=== PATIENT | male | born 1980 | race Caucasian/White ===

== ENCOUNTER 2021-12-25 11:07 | Emergency (ER) | payer OTHER, SELFPAY ==
[2021-12-25 11:15] VITALS: BP 126/79; PULSE 92; RESP 16; TEMP 36.2; O2SAT 100
[2021-12-25 11:25] VITALS: BP 126/79; PULSE 92; RESP 16; TEMP 36.2; O2SAT 100
--- NOTE | 2021-12-25 11:29 | ED.URI ---
HPI - URI/Sore Throat General Chief Complaint: Upper Respiratory Infection Stated Complaint: Sore Throat,Congestion,Headache,Body Aches Time Seen by Provider: 12/25/21 11:29 Source: patient Mode of arrival: ambulatory Limitations: no limitations History of Present Illness HPI Narrative: 41 yo M presents with c/o fever/chills, bodyaches, headache, fatigue and sore throat for 3 days. Reports that his son had strep last week. Denies N/V/D. No CP or SOB. All systems reviewed and negative except as noted above. Related Data Home Medications Medication Instructions Recorded Confirmed esomeprazole magnesium 20 mg 20 mg PO DAILY 12/25/21 12/25/21 tablet,delayed release Allergies Allergy/AdvReac Type Severity Reaction Status Date / Time No Known Allergies Allergy Verified 12/25/21 11:24 Review of Systems Review of Systems: CONSTITUTIONAL: Reports fever, chills, or sweats. Reports fatigue. EYES: Denies visual changes, redness, or discharge. ENT: Denies rhinorrhea, congestion. Reports sore throat. Denies otalgia. CARDIOVASCULAR: Denies chest pain, palpitations, or edema. RESPIRATORY: Denies cough or dyspnea. GASTROINTESTINAL: Denies abdominal pain, nausea, vomiting, or diarrhea. GENITOURINARY: Denies dysuria or hematuria. SKIN: Denies rash or itching. MUSCULOSKELETAL: Denies back pain, joint pain, or myalgia. NEUROLOGIC: Denies headache, numbness, or weakness. PSYCHIATRIC: Denies anxiety or depression. All other systems reviewed are negative, except as documented in HPI. PMFSH Comments At time of signature, agree with nursing past medical, surgical, social and family history. There is no relevant family history pertinent to the presenting complaint. Exam Narrative: GENERAL: This is a well-nourished, well-developed patient, in no apparent distress. HEAD: normocephalic, atraumatic. EYES: PERRL. Sclera clear/white. Vision is grossly intact. EARS: External ears normal, auditory canals clear and without drainage, TMs normal without perforation. Hearing grossly intact. NOSE: External nose normal with no obvious nasal discharge, nares without redness, no rhinorrhea. THROAT: Mucous membranes moist, mild erythema to posterior pharynx with mild swelling No exudates. No tonsillar swelling. NECK: Neck supple, non-tender without lymphadenopathy, masses or thyromegaly. CARDIOVASCULAR: Regular rate and rhythm without murmurs, gallops, or rubs. RESPIRATORY: Clear to auscultation. Breath sounds equal bilaterally. No wheezes, rales, or rhonchi. SKIN: warm, Dry, intact with no suspicious lesions or rash, good texture and turgor. NEURO: awake, alert, and oriented to person, place and time. There were no obvious focal neurologic abnormalities. EXTREMITIES: No joint tenderness, effusion, or edema noted. Course Course Level of Care: Express Care Visit Vital Signs Vital signs: Vital Signs Temperature 36.2 C L 12/25/21 11:15 Pulse Rate 92 12/25/21 11:15 Respiratory Rate 16 12/25/21 11:15 Blood Pressure 126/79 12/25/21 11:15 Pulse Oximetry 100 12/25/21 11:15 Oxygen Delivery Room Air 12/25/21 11:15 Temperature 36.2 C L 12/25/21 11:25 Pulse Rate 92 12/25/21 11:25 Respiratory Rate 16 12/25/21 11:25 Blood Pressure 126/79 12/25/21 11:25 Pulse Oximetry 100 12/25/21 11:25 Oxygen Delivery Room Air 12/25/21 11:25 Reviewed MDM - URI/Sore Throat MDM Narrative Medical decision making narrative: Patient is aware of diagnosis, understands and agrees to treatment plan. Anticipatory guidance given. Patient agrees to follow-up as directed and is aware of reasons to seek care at the emergency department. Portions of this record may have been created with voice recognition software Positive rapid strep. We will treat patient with amoxicillin. Differential Diagnosis Differential diagnosis: Likely upper respiratory infection, sinusitis, viral infection, influenza and pharyngitis Lab Data Labs: Lab
== END 2021-12-25 11:37 | disposition home or self-care (01) ==
PROVIDERS: Emergency Provider Nurse Practitioner Family
DX: J02.0 Streptococcal pharyngitis (principal); Z20.822 Contact with and (suspected) exposure to COVID-19; Z86.16 Personal history of COVID-19
CPT/HCPCS: 87426; 87804; 87880; 99203; C9803; G0463

== ENCOUNTER 2025-04-17 10:24 | Emergency (ER) | payer OTHER, SELFPAY ==
--- OUTSIDE RECORDS SUMMARY | 2025-04-17 10:26 | XMS_ITS | Clinical Summary ---
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 Gender Identity Not on file Sexual Orientation Not on file Plan of Treatment Health Maintenance Due Date Last Done Comments Hepatitis C Virus (HCV) Screening 1981 TdaP Immunization 1981 Hepatitis B Immunization (1 of 3 - 19+ 3-dose series) 01/02/2000 Human Papillomavirus (HPV) Immunization (1 - 3-dose SCDM series) 01/02/2008 Influenza Immunization (#1) 2025 SARS-COV-2 Immunization ( season) 2025 Respiratory Syncytial Virus (RSV) Immunization (Adult) (1 - 1-dose 75+ series) 01/02/2056 Meningococcal Immunization (ACWY) Aged Out No longer eligible based on patient's age to complete this topic Pneumococcal Immunization Combined Aged Out No longer eligible based on patient's age to complete this topic Rotavirus Immunization Aged Out No lo nger eligible based on patient's age to complete this topic Insurance [employer] on file
--- OUTSIDE RECORDS SUMMARY | 2025-04-17 10:26 | XMS_ITS | Data Portability ---
Author Organization [place] [facility], Main Office Address [address] [place] [address] Assessment Encounter Date Assessment Date Assessment LastModified by Organization Details LastModified Time 03/26/2024 03/26/2024 This note is dictated and transcribed by [employer]. [employer] Operator variances may occur. Despite proofreading, typographical errors may occur. Occasional wrong-word or 'nhaxu-r-sxzw' substitutions may have occurred due to the inherent limitations of voice recording. Read the chart carefully and recognize, using context, where substitutions have occurred. Not available 03/26/2024 15:55:15 04/20/2024 04/20/2024 This note is dictated and transcribed by [employer]. [employer] Operator variances may occur. Despite proofreading, typographical errors may occur. Occasional wrong-word or 'wtyoo-u-jrrx' substitutions may have occurred due to the inherent limitations of voice recording. Read the chart carefully and recognize, using context, where substitutions have occurred. Not available 04/30/2024 10:41:56 06/25/2024 06/25/2024 This note is dictated and transcribed by [employer]. [employer] Operator variances may occur. Despite proofreading, typographical errors may occur. Occasional wrong-word or 'qfphq-w-yxft' substitutions may have occurred due to the inherent limitations of voice recording. Read the chart carefully and recognize, using context, where substitutions have occurred. Not available 06/25/2024 14:29:53 Plan of Treatment Reminders Order Date Submit Date Provider Last Modified By Organization Details Last Modified Time Details Appointments None recorded. Lab None recorded. Referral None recorded. Procedures None recorded. Surgeries None recorded. Imaging None recorded. Medication Orders ketoconazol e 2 % topical cream 2023 024 [id number] [address], [place], [id number], 15:58:19 Patient TargetsNo targets recorded. Patient InstructionsNo instructions recorded. Reason for Referral None Reported. Problems Name Problem SNOMED Code Status Onset Date Resolution Date Notes Provider Name and Address Organization Details Recorded Time Tinea pedis 5987999 Active 2023 Percy Yarbrough DPM [address], [place], [address], [employer] 15:55:04 Acquired pes planus of left foot 2964935549394 08 Active 2023 Percy Yarbrough DPM [address], [address], [place], [address], [employer] 4 15:55:13 Metatarsalg ia 97928047 Active 2023 Percy Yarbrough DPM [address], [place], [address], [employer] 4 15:55:34 Bunion 865698845 Active 2023 Percy Yarbrough DPM [address], [place], [address], [employer] 4 15:55:39 Problem Notes None recorded. Procedures Surgical History Date Name Laterality Status Provider Name and Address Organization Details Recorded Time reconstruction of anterior cruciate ligament of knee joint completed [facility] 03/26/2024 16:06:25 repair of meniscus completed [facility] [facility] 03/26/2024 16:06:36 Imaging Results None recorded. Procedure Notes None recorded. Medical Equipment None Reported. Medications Name Sig Start Date Stop Date Status Note LastModified by Organization Details LastModified Time pantoprazole 20 mg tablet,delayed release active Not Available Not Available Not Available ketoconazole 2 % topical cream APPLY TO THE AFFECTED AREA OF BOTH FEET DAILY FOR 2 WEEKS active Not Available Not Available No t Available Advil active Not Available Not Availa ble Not Available esomeprazole magnesium active Not Available Not Available No t Available Vitals Date Recorded Body height Provider Name an d Address Organization Details Last Updated DateTime 06/25/2024 175.26 cm Lexy Mcpherson [employer] 06/25/2024 14:09:29 Date Recorded Heart rate Respiratory rate Oxygen saturation Oxygen saturation in Arterial blood by Pulse oximetry Body height Body mass index (BMI) Body weight Systolic And Diastolic Provider Name and Address Organization Details Last Updated DateTime 4 74 /min 14 /min 99 % 99 % 175.26 cm 31.7 kg/m2 07579.3 6 g 154/101 mm[Hg] Lexy Mcpherson [facility] 4 15:07:04 Date Recorded Body height Heart rate Respiratory rate Oxygen saturation Oxygen saturation in Arterial blood by Pulse oximetry Systolic And Diastolic Provider Name and Address Organization Details Last Updated DateTime 175.26 cm 77 /min 14 /min 99 % 99 % 148/101 mm[Hg] Lexy Wright [place] [employer] [facility] 4 15:44:39 Social History Question Answer Notes LastModified by [employer] Details LastModified Time Tobacco Smoking Status Never Smoker [facility]y [employer] [facility] 03/26/2024 16:06:58 What Is Your Level Of Caffeine Consumption? Moderate Information not available 03/26/2024 What Was The Date Of Your Most Recent Tobacco Screening? 03/26/2024 Information not available 03/26/2024 Have You Ever Been Counseled For Unhealthy Alcohol Use? No Information not available 03/26/2024 Has Tobacco Cessation Counseling Been Provided? No Information not available 03/26/2024 Sex: Unknown Functional Status Question Answer Note LastModified by Organizat ion Details LastModified Time Do you use any illicit or recreational drugs? No Information not available 03/26/2024 Do you or have you ever used any other forms of tobacco or nicotine? No Information not available 03/26/2024 What is your level of alcohol consumption? Occasional Information not available 03/26/2024 Mental Status None recorded. Family History Relationship Description Onset Age of this Age Resolved Age Notes LastModified by Organization Details LastModified Time Paternal Grandfather Diabetes mellitus Not available 2023 16:05:17 Paternal Grandfather Heart disease Not available 2023 16:06:06 Maternal Grandmother Arthritis [email or web address] Not available 14:07:45 Father Hypertensive disorder Not available 2023 16:05:43 Mother Hypertensive disorder Not available 2023 16:05:43 Unspecified Relation Hypertensive disorder Not available 2023 16:05:43 Paternal Grandmother Heart disease Not available 2023 16:06:06 Maternal Grandfather Malignant neoplastic disease [email or web address] Not available 2024 14:07:45 Medical History Condition Response ALLERGIES/HAYFEVER Y HEARTBURN / REFLUX Y Past Encounters Encounter ID Performer Location Encounter Start Date Encounter Closed Date Diagnosis/Indication Diagnosis SNOMED-CT Code Diagnosis ICD10 Code Diagnosis IMO Codes Diagnosis Note [id number] Percy Yarbrough DPM [facility] [place] [address] [place] [address] 03/26/2024 15:00:59 03/30/2024 10:50:16 Tinea pedis 8834219 B35.3 bilateral feetWash feet dailyRx ketoconazo lefollow-u p 2 weeks Acquired p es planus of left foot 0362796779 24593 M21.42 recommend supportive shoe gearRx custom orthotics Metatarsalgia 11998822 M 77.41 sub 2nd metatarsal headRx custom orthotics with dancer's pad offloading Bunion 515107050 M21.61 9 bilateral worse to the leftRx insolesdis cuss treatment optionsx-r ays reviewedco ntinue wide shoe gear [id number] Percy Yarbrough DPM [facility] [place] [address] [place] [address] 04/20/2024 15:33:31 06/11/2024 14:51:21 Tinea pedis 7739218 B35.3 bilateral feetWash feet dailyRx ketoconazo le- DCfollow-u p as needed [id number] Percy Yarbrough DPM [facility] [place] [address] [place] [address] 06/25/2024 14:06:32 06/30/2024 15:25:45 Tinea pedis 3616038 B35.3 bilateral feetResolv edfollow-u p as needed Health Concerns Section Related Observation LastModified by Organization Detai ls LastModified Time None Recorded Concern Status LastModified by Organization Details LastModified Time None Recorded Advance Directives Directive None Recorded Payers Insurance Date Sequence Insurance Name Policy Number Policy House Covered Member ID House Member ID Guarantor Name 07/29/2024 2 [employer] - [employer] () Ryan Diaz [id number] Ryan Diaz 10/23/2024 1 [employer] - OPEN ACCESS Maye Diaz [id number] Ryan Diaz 10/23/2024 2 [place] - [employer] () Ryan Diaz [id number] yRan Diaz 07/15/2024 2 UNSPECIFIED REMIT PAYOR Ryan Diaz 10/23/2024 2 WE[employer] - [employer] - [employer] () Ryan Diaz [id number] Ryan Diaz Notes Date Note Type Note Provider Name and Address Organization Details Recorded Time 03/26/2024 text/html . Patient is a 44-year-old male who presents the office with complaints nail changes. Patient states he is concerned about the thickening of his toenails. Patient states he has not had any treatment for this condition. Patient states he is also having pain to the plantar right foot he denies any wounds or injury to the foot. Patient states when he is standing or walking he has pain under the metatarsal head of the 2nd toe. Patient states he also has noticed a rash with scaling to the bottom of his foot. Patient states it has been present for a few days he has not had any treatment for this. Patient denies any other complaints. Percy Yarbrough DPM [address] [facility], [facility] [address], [place], [address], [facility] 04/02/2024 12:50:19 04/20/2024 text/html Patient returns for follow-up on tinea pedis he states the rash has resolved he denies any other complaints. Percy Yarbrough DPM [address], [place], [address], [employer] 04/30/2024 10:42:07 06/25/2024 text/html . Patient is a 44-year-old male who returns the office for follow-up on bilateral tinea pedis he states he has been applying the cream as well as being more proficient with his shoe gear and states that he is no longer having any peeling or itching in the feet. Patient denies any other complaints. Percy Yarbrough DPM [address], [place], [address], [employer] 06/25/2024 14:30:09
--- OUTSIDE RECORDS SUMMARY | 2025-04-17 10:26 | XMS_ITS | Clinical Summary ---
Author Organization [facility] Address [address] [place] [address] Care Team Providers Care Arbitrator Name Role Phone Jefe Duong DO Primary Care Provider [phone] Allergies No known active allergies Medications Esomeprazole Magnesium 20 MG Tab EC Active esomeprazole (NEXIUM) 40 MG capsuleIndicati ons:Chronic heartburn Take 1 capsule (40 mg total) by mouth 2 (two) times a day. 60 capsule 2 5 Active sodium picosulfate-mag nesium oxide-citric acid (CLENPIQ) 10-3.5-12 mg-g-g/175 mL SolutionIndicat ions:Irregular bowel habits Take 175 mLs by mouth 2 (two) times a day. Per GI instructions 350 mL 5 Active Active Problems Problem Noted Date Diagnosed Date Chronic heartburn 03/05/2025 Irregular bowel habits 03/05/2025 Encounters Date Type Department Care Team Description 03/05/2025 9:20 AM CD[facility] - [address], [address] [place] [address] Talita Belle NP New Patient; GERD (Referral GERD sx's) 03/05/2025 [facility] - [address], [address] [place] [address] Walt Ring MD 03/05/2025 Travel from Last 3 Months Social History Tobacco Use Types Packs/Day Years Used Date Smoking Tobacco: Never Smokeless Tobacco: Never Tobacco Cessation:Counseling Given: No Alcohol Use Standard Drinks/Week Comments Not Currently 0 (1 standard drink = 0.6 oz pur e alcohol) PHQ-2 Answer Date Recorded Patient Health Questionnaire-2 Score 0 03/05/2025 Sex and Gender Information Value Date Recorded Sex Assigned at Not on file Legal Sex Male 4:16 PM CDT Gender Identity Not on file Sexual Orientation Not on file Last Filed Vital Signs Vital Sign Reading Time Taken Comments Blood Pressure 130/80 03/05/2025 9:35 AM CDT Pulse 65 03/05/2025 9:35 AM CDT Temperature 36.9 C (98.5 F) 03/05/2025 9:35 AM CDT Respiratory Rate 20 03/05/2025 9:35 AM CDT Oxygen Saturation 100% 03/05/2025 9:35 AM CDT Inhaled Oxygen Concentration - - Weight 100.7 kg (222 lb) 03/05/2025 9:35 AM CDT Height 175.3 cm (5' 9) 03/05/2025 9:35 AM CDT Body Mass Index 32.78 03/05/2025 9:35 AM CDT Plan of Treatment Upcoming Encounters Date Type Department Care Team (Late st Contact Info) Description 08/04/2025 9:46 AM VICE PRESIDENT OF MARKETING Hospital Encounter [facility] [address] [place] [address] Walt Ring MD [address] [place] [address] 08/04/2025 9:46 AM VICE PRESIDENT OF MARKETING - 08/04/2025 10:24 AM VICE PRESIDENT OF MARKETING Surgery [facility] [address] [place] [address] Walt Ring MD [address] [address] EGD Scheduled Procedures Name Priority Associated Diagnoses Date/Ti me EGD Chronic heartburn Irregular bowel habits 08/04/2025 9:46 AM VICE PRESIDENT OF MARKETING COLONOSCOPY DIAGNOSTIC WITH/WITHOUT SPECIMEN BRUSH/WASH Chronic heartburn Irregular bowel habits 08/04/2025 9:46 AM VICE PRESIDENT OF MARKETING Health Maintenance Due Date Last Done Comments Annual Physical 01/02/1984 Hepatitis C 1999 HPV Vaccines (1 - 3-dose SCDM series) 01/02/2008 COVID-19 Vaccine (4 - 2024- season) 2025 07/17/2021, 09/28/2020, 08/31/2020 Influenza Adult (#1) 2025 05/21/2021, 05/23/2020, 03/19/2019, Additional history exists DTaP, Tdap and Td Vaccines (4 - Td or Tdap) 03/19/2029 03/19/2019, 01/29/2009, 01/12/1999 Hepatitis A Vaccines Completed 03/02/2000, 08/26/19 00 Meningococcal Vaccine Aged Out 09/16/2004 No sully jonn eligible based on patient's age to complete this topic Hepatitis B Vaccines Completed 01/29/2009, 04/18/2008, 02/22/2008 PHQ-2 (Physician [employer]) Completed 03/05/2025 Meningococcal B Vaccine Aged Out No l onger eligible based on patient's age to complete this topic Pneumococcal Vaccine: Pediatrics (0 to 5 Years) and At-Risk Patients (6 to 49 Years) Aged Out No longer eligible based on patient's age to complete this topic RSV Immunizations Under 20 Months Aged Out No longer eligible based on patient's age to complete this topic Goals Goal Patient Goal Type Associated Problems Recent Progress Patient-Stated? Author Autogenerat ed Goal Care Plan Autogenerated Problem No Brook Lorenzo RN Additional Health Concerns Active Problems Noted Date Diagnosed Date Autogenerated Problem 03/05/2025 Insurance [facility] [employer] OPEN ACCESS [facility] Care Teams Arbitrator Relationship Specialty Start Date End Date Jefe Duong DO [address] [address] PCP - General FAMILY PRACTICE 01/27/25
--- NOTE | 2025-04-17 10:31 | ED_ITS ---
HPI - General Adult General Chief complaint: Upper Respiratory Infection Stated complaint: Flu Like Time Seen by Provider: 04/17/25 10:31 Source: patient Mode of arrival: ambulatory Limitations: no limitations History of Present Illness HPI narrative: 45-year-old male patient presents to the [facility] with complaints of cold symptoms for the past 4 days. Patient states he has had a lot of congestion, runny nose and sore throat. Denies fevers body aches or chills. Denies any ear pain. Denies any chest pain or shortness of breath. Denies abdominal pain nausea vomiting or diarrhea. Patient states he took some DayQuil last night and took some use Mucinex this morning for his symptoms Related Data Home Medications ?Medication ?Instructions ?Recorded ?Confirmed ?Last Taken ?Type esomeprazole magnesium 20 mg 20 mg PO DAILY 12/25/21 1 06/17/24 Unknown History tablet,delayed release Allergies Allergy/AdvReac Type Severity Reaction Status Date / Time No Known Allergies Allergy Verified 04/17/25 10:26 Review of Systems Review of Systems: CONSTITUTIONAL: Denies fever, chills, or sweats. EYES: Denies visual changes, redness, or discharge. ENT: positive rhinorrhea, congestion, sore throat, denies otalgia. CARDIOVASCULAR: Denies chest pain, palpitations, or edema. RESPIRATORY: Denies cough or dyspnea. GASTROINTESTINAL: Denies abdominal pain, nausea, vomiting, or diarrhea. GENITOURINARY: Denies dysuria or hematuria. SKIN: Denies rash or itching. MUSCULOSKELETAL: Denies back pain, joint pain, or myalgia. NEUROLOGIC: Denies headache, numbness, or weakness. PSYCHIATRIC: Denies anxiety or depression. [facility] Past Medical History Medical History No significant past medical history Comments At the time of my signature I agree with nursing past medical history, surgical, social, and family history. There is no relevant family history pertinent to the presenting complaint. Exam Narrative: GENERAL: Well-appearing, well-nourished, and in no acute distress. HEAD: Normocephalic, atraumatic. EYES: PERRLA and EOMI. ENT: Nares with erythema edema noted bilaterally, no rhinorrhea or epistaxis. Mucous membranes moist. posterior pharynx with some postnasal drip noted but no tonsillar enlargement no exudates or lesions present. Bilateral TMs do look slightly injected but no evidence for infection. No foreign bodies the canal. NECK: Supple. No lymphadenopathy CHEST: Clear to auscultation. No respiratory distress. HEART: Regular rate and rhythm. No murmur heard. Normal peripheral pulses. ABDOMEN: Soft, nontender, nondistended, normal active bowel sounds. EXTREMITIES: Normal range of motion. No edema. SKIN: Warm, dry, no rash. NEURO: No focal deficits. Alert and oriented x3. Course Course Level of Care: Express Care Visit Vital Signs Vital signs: Vital Signs Temperature 36.1 C L 04/17/25 10:36 Pulse Rate 90 04/17/25 10:36 Respiratory Rate 18 04/17/25 10:36 Blood Pressure 153/92 H 04/17/25 10:36 Pulse Oximetry 100 04/17/25 10:36 Oxygen Delivery Room Air 04/17/25 10:36 Temperature 36.1 C L 04/17/25 10:36 Pulse Rate 90 04/17/25 10:36 Respiratory Rate 18 04/17/25 10:36 Blood Pressure 153/92 H 04/17/25 10:36 Pulse Oximetry 100 04/17/25 10:36 Oxygen Delivery Room Air 04/17/25 10:36 Vital signs reviewed. The patient has been informed that they may have pre- hypertension or Hypertension based on a BP reading in the department. I recommend that the patient call the primary care provider listed on their discharge instructions or a physician of their choice this week to arrange follow up for further evaluation of possible pre-hypertension or Hypertension Medical Decision Making MDM Narrative Medical decision making narrative: by patient as point of care testing for strep, influenza and COVID were all negative today. We will send the strep test to the lab for culture if the culture does come back positive we will call him in an antibiotic at that time. Discussed with patient this is most likely a viral illness and will take anywhere from 10 days to 2 weeks to get over. Discussed with patient he can take [id number] medications including Zyrtec, Zhane or Claritin to help with the runny nose and drainage symptoms as well as Flonase. Highly recommend that he increase his vitamin-C, zinc and vitamin D to help boost his immune system may take Tylenol ibuprofen as needed for pain. Patient may continue taking Mucinex as needed. Patient is aware the plan of care denies any other questions or concerns at this time. Differential Diagnosis Differential Diagnosis: Differential diagnosis: Allergic rhinitis, chronic sinusitis, tonsillitis, acute sinusitis, infectious mononucleosis, seasonal influenza, pertussis, diphtheria, meningococcal disease, viral syndrome, viral bronchitis, RSV, COVID- 19 Vital Signs Vital Signs: Vital Signs Temperature 36.1 C L 04/17/25 10:36 Pulse Rate 90 04/17/25 10:36 Respiratory Rate 18 04/17/25 10:36 Blood Pressure 153/92 H 04/17/25 10:36 Pulse Oximetry 100 04/17/25 10:36 Oxygen Delivery Room Air 04/17/25 10:36 Temperature 36.1 C L 04/17/25 10:36 Pulse Rate 90 04/17/25 10:36 Respiratory Rate 18 04/17/25 10:36 Blood Pressure 153/92 H 04/17/25 10:36 Pulse Oximetry 100 04/17/25 10:36 Oxygen Delivery Room Air 04/17/25 10:36 Lab Data Labs: Lab Results 04/17/25 Range/Units 10:48 POC Influenza A Ag Negative (Negative) POC Influenza B Ag Negative (Negative) POC SARS CoV-2 Ag Negative (Negative) POC Grp A Strep Screen Negative (Negative) Critical Care Time Critical Care Time Critical Care Time: No Discharge Plan Discharge Clinical Impression: Viral URI Patient Disposition: Home Condition: Stable Instructions: Antibiotic Form, Viral Syndrome (ED) Additional Instructions: Viral illness may last between 7-12days; antibiotic is NOT recommended at this time. Recommend antihistamine such as Benadryl at night time and Claritin/Zyrtec/Zhane during the day. may take [id number] Flonase to help with the runny nose. Two squirts in each nostril in the morning and before bed. Take [id number] vitamins to help support your immune system including vitamin C, 2000 mg in the a.m. and 2000 mg in the p.m.. Zinc 40-50 mg a day for 4-5 days, and vitamin-D 2000 IU daily. Cough syrup may cause drowsiness; avoid driving or take it at night time. Also, recommend symptomatic treatment includes: rest, fluids, and increase humidity of the air at home. Recommend Acetaminophen or nonsteroidal anti-inflammatory agents (NSAIDs) as directed in the bottle to reduce fever and/pain/headache. Avoid smoking/second-hand smoke. Limit visits to areas with large crowds. Please schedule a follow-up visit with your personal physician for further evaluation and treatment within 3-5days. Including recheck and discussion of your blood pressure. If your symptoms persist, change or worsen significantly before you can contact your personal physician then please, without delay, go to the emergency department for further evaluation. Patient Language: Mexican Prescriptions: No Action esomeprazole magnesium 20 mg Tablet,Delayed Release (Dr/Ec) 20 mg PO DAILY Follow-up/Referrals: PORTER, [Primary Care Provider] Stand Alone Forms: Work/School Release IP Time of Disposition: 10:55
[2025-04-17 10:36] VITALS: BP 153/92; PULSE 90; RESP 18; TEMP 36.1; O2SAT 100
[2025-04-17 10:50] LABS: EDCOVIDSCREEN Negative (Negative); EDINFLUASCREEN Negative (Negative); EDINFLUBSCREEN Negative (Negative); EDSTREPNEGPOS1 Negative (Negative)
== END 2025-04-17 10:57 | disposition home or self-care (01) ==
PROVIDERS: Emergency Provider Nurse Practitioner Family
DX: J06.9 Acute upper respiratory infection, unspecified (principal); Z20.822 Contact with and (suspected) exposure to COVID-19
CPT/HCPCS: 87081; 87426; 87804; 87880; 99213; G0463